=== PATIENT | male | born 1995 | race Caucasian/White ===

== ENCOUNTER 2018-04-21 13:55 | Emergency (ER) | payer OTHER ==
[2018-04-21 14:28] VITALS: BP 115/73
--- NOTE | 2018-04-21 14:56 | UC ---
Laceration HPI - HPI Summary HPI Summary: cut R 5th finger on metal pipe today - History Of Current Complaint Chief Complaint: UCLaceration Stated Complaint: FINGER LAC Time Seen by Provider: 04/21/18 14:34 Hx Obtained From: Patient Laceration Location: Finger Mechanism Of Injury: Sharp Trauma Onset/Duration: Sudden Onset Severity: Mild Pain Intensity: 2 - Allergies/Home Medications Allergies/Adverse Reactions: Allergies Allergy/AdvReac Type Severity Reaction Status Date / Time No Known Allergies Allergy Verified 04/21/18 14:28 Home Medications: Home Medications NK [No Home Medications Reported] 04/21/18 [History Confirmed 04/21/18] PMH/Surg Hx/FS Hx/Imm Hx Previously Healthy: Yes Other History Of: Negative For: Anticoagulant Therapy - Surgical History Surgical History: None - Family History Known Family History: Positive: None Negative: Hypertension, Diabetes - Social History Occupation: Employed Full-time Lives: With Family Alcohol Use: Occasionally Substance Use Type: None Smoking Status (MU): Never Smoked Tobacco - Immunization History Most Recent Tetanus Shot: less then 5 years Review of Systems Constitutional: Negative Respiratory: Negative Cardiovascular: Negative Motor: Negative All Other Systems Reviewed And Are Negative: Yes Physical Exam Triage Information Reviewed: Yes Appearance: Well-Appearing, No Pain Distress, Well-Nourished Vital Signs: Initial Vital Signs Temp 98.0 F 04/21/18 14:25 Pulse 68 04/21/18 14:25 Resp 12 04/21/18 14:25 BP 115/73 04/21/18 14:25 Pulse Ox 100 04/21/18 14:25 Vital Signs Reviewed: Yes Respiratory Exam: Normal Cardiovascular Exam: Normal Musculoskeletal Exam: Normal Musculoskeletal: Positive: Strength Intact, ROM Intact Neurological Exam: Normal Skin: Positive: Other - lac R 5th finger Laceration Repair - Laceration Repair 1 Description: Linear Laceration Size After Repair: Length (cm) - 1.3, Width (mm) - 3, Depth (mm) - 3 Modified For Repair: No Type Injection: Local Anesthesia Used: 1.0% Lido Irrigation With Pressure Irrigation Device: Yes Closure Material: Sutures Closure Method: Single Layer Suture Of: Skin Suture Type: Nylon - 3 5.0 Laceration Course/Dx - Differential Dx - Laceration/Wound Differental Diagnoses: Avulsion, Laceration Provider Diagnoses: R 5th finger lac Discharge - Sign-Out/Discharge Documenting (check all that apply): Patient Departure All imaging exams completed and their final reports reviewed: No Studies - Discharge Plan Condition: Good Disposition: HOME Patient Education Materials: Laceration (ED) Referrals: Tamanna Soto TRANSIT OPERATIONS SUPERVISOR [Primary Care Provider] - Additional Instructions: keep wound clean and dry wear splint for 5 days suture removal 10 days - Billing Disposition and Condition Condition: GOOD Disposition: Home - Attestation Statements Provider Attestation: Per institutional requirements, I have reviewed the chart, however, I was not consulted specifically or made aware of this patient by the midlevel provider. I did not personally evaluate, interact with , or disposition this patient.
[2018-04-21] MEDS ORDERED: Lidocaine 1%* 5 ML VIAL INJ ONE (14:58)
== END 2018-04-21 15:30 | disposition home or self-care (01) ==
LOC: UCEAST 13:55
DX: S61.216A Laceration without foreign body of right little finger without damage to nail, initial encounter (principal); W26.8XXA Contact with other sharp object(s), not elsewhere classified, initial encounter; Y93.9 Activity, unspecified; Y92.9 Unspecified place or not applicable
CPT/HCPCS: 12001; 99211; G0463

== ENCOUNTER 2019-03-19 07:19 | Day surgery (SDC) | payer OTHER ==
[~2019-03-19 07:19] MED LIST: Buffered Lidocaine 1% SYRIN* 1 ML/SYRINGE INTRADERM ONE; Dexamethasone IV* 4 MG/ML 1 ML (4 MG) IV SLOW PU ONE; Famotidine TAB* 20 MG PO ONE; Lactated Ringers 1000 ML Bag* 1,000 ML IV SCH
[2019-03-19] MEDS ORDERED: Dexamethasone IV* 4 MG/ML 1 ML (4 MG) ONE (07:47)
[2019-03-19] MEDS ORDERED: ceFAZolin 2 GM in NS PREMIX(*) 2 GM/100 ML BAG IVPB ONE (07:47)
[2019-03-19] MEDS ORDERED: Famotidine TAB* 20 MG ONE (07:47)
[2019-03-19] MEDS ORDERED: Buffered Lidocaine 1% SYRIN* 1 ML/SYRINGE INTRADERM ONE (07:47)
[2019-03-19] MEDS ORDERED: Propofol* 10 MG/ML 20 ML BTL ONE ×2 (08:23→10:41)
[2019-03-19] MEDS ORDERED: fentaNYL* 50 MCG/ML 2 ML VIAL (100 MCG VIAL) ONE ×3 (08:23→11:44)
[2019-03-19] MEDS ORDERED: Midazolam* 1 MG/ML 5 ML VIAL (5 MG) ONE (08:23)
[2019-03-19] MEDS ORDERED: EPINEPHRINE 1 MG/ML 1 ML VIAL ONE (09:56)
[2019-03-19] MEDS ORDERED: Bupivacaine 0.5%* 50 ML VIAL ONE (09:56)
[2019-03-19] MEDS ORDERED: Lidocaine 2% PF * 5 ML VIAL ONE (10:10)
[2019-03-19] MEDS ORDERED: fentaNYL* 50 MCG/ML 2 ML VIAL (100 MCG VIAL) IV PRN (10:40)
[2019-03-19] MEDS ORDERED: Naloxone* 0.4 MG/ML 1 ML VIAL IV PRN (10:40)
[2019-03-19] MEDS ORDERED: Ketorolac INJ* 30 MG/ML 1 ML VIAL IV PRN (10:40)
[2019-03-19] MEDS ORDERED: DiMENhydriNATE IV* 50 MG/ML VIAL IV PUSH PRN (10:40)
[2019-03-19] MEDS ORDERED: HYDROcodone/ACETAMIN 5-325 MG* 1 TAB PO PRN (10:40)
[2019-03-19] MEDS ORDERED: Acetaminophen TAB* 325 MG PO PRN (10:40)
[2019-03-19] MEDS ORDERED: Ondansetron INJ* 2 MG/ML VIAL ONE (11:16)
[2019-03-19] MEDS ORDERED: Ketorolac INJ* 30 MG/ML 1 ML VIAL ONE (11:44)
[2019-03-19 13:27] VITALS: BP 121/78
--- NOTE | 2019-03-19 15:13 | OP ---
DATE OF OPERATION: 03/19/19 - [facility] DATE OF : [birth year] SURGEON: Chandrakant Navarro MD. BUTTONHOLE MAKER HAND: JABARI Lima. A physician financial sales assistant was required for the length of the procedure for assistance with patient positioning, retraction, and closure. ANESTHESIOLOGIST: Dr. Alan Wang. ANESTHESIA: General anesthesia, local anesthesia using 30 cc of 0.5% Marcaine with epinephrine. PRE-OP DIAGNOSES: 1. Left knee loose body, symptomatic. 2. Left knee possible articular cartilage defect. POST-OP DIAGNOSES: 1. Left knee symptomatic loose body. 2. Left knee low-grade articular cartilage injury, grade 1 to 2, medial patella. 3. Left knee prominent medial plica. OPERATIVE PROCEDURES: 1. Left knee arthroscopic removal of loose bodies. 2. Left knee arthroscopic chondroplasty, medial patella. 3. Left knee arthroscopic debridement of medial plica. 4. Modifier 22 for unusual or complex procedure. I included this code just as this case took much longer than the standard removal of loose body procedure. This was because mini C-arm was utilized and a posterolateral portal was required, to remove loose bodies that had migrated to the posterior aspect of the knee. ANTIBIOTICS: Ancef 2 g IV. IV FLUIDS: See Anesthesia note. TOURNIQUET TIME: 52 minutes at 300 mmHg, left thigh tourniquet. VFTF-BO-YXGA TIME: 41 minutes. RADIATION EXPOSURE: Mini C-arm utilized. Time and radiation exposure not currently available. ARTHROSCOPIC FLUID UTILIZED: Not available. SPECIMENS: Two loose bodies, osteocartilaginous, synovialized, sent for pathology. IMPLANTS: None. INDICATIONS FOR PROCEDURE: The patient is a 23-year-old man who presented to me in clinic with left knee pain and mechanical symptoms and a loose body on radiography that was also present on MRI imaging. No clear articular cartilage defect visible on MRI or x-ray. Maximal dimension of loose body was noted to be 12.4 mm. Loose body was noted to be in the patellofemoral compartment on both the x-ray and MRI imaging. Discussed nonoperative and operative management. Given the significance of his symptoms and the possibility for joint damage caused by that loose body, we decided to move forward with surgery. Discussed risks and potential complications of surgery. I consented the patient for removal of loose body as well as for possible microfracture if I were to encounter a high-grade articular cartilage injury. DESCRIPTION OF PROCEDURE: In preoperative holding, the patient signed written consent. Operative extremity was marked in preoperative holding. The patient was taken back to the operating room and placed supine on the operating room table. Sedated and intubated. Tourniquet was placed about the left proximal thigh. Two blanket bumps placed under the left hemipelvis. Lateral post applied along the table. Left lower extremity was prepped and draped. Surgical time-out performed. Esmarch applied and tourniquet elevated to 300 mmHg. I established an anterolateral knee arthroscopy portal using standard technique. Commenced my diagnostic arthroscopy. I noted that the patellofemoral compartment seemed a little tight even with the knee in full extension. There was some clear irritation about the medial most aspect of the articular cartilage of the undersurface of the patella. While there appeared to be wear of articular cartilage in that location, I detected no articular cartilage injury to the trochlear groove or to the lateral patella. I noticed at this point a prominent medial plica. I dropped down to the anterior aspect of the knee. There was a prominent plica or ligamentum mucosum anterior to the ACL. I established an anteromedial knee arthroscopy portal under direct visualization. I debrided the ligamentum mucosum as well as some anterior synovitis using the arthroscopic shaver. Surprisingly, the loose body was not visible. In my experience, generally, these collect towards the anterior horns of the medial or lateral meniscus. ACL and PCL were noted to be intact. I next visualized the medial compartment. No meniscal tear. No articular cartilage injury whatsoever about the medial tibial plateau or medial femoral condyle. I moved to the lateral compartment. No injury to the lateral meniscus, lateral femoral condyle, or lateral tibial plateau. I next more closely evaluated the medial patella. I established a new anteromedial knee arthroscopy portal and inserted my shaver through that. I debrided much of the medial plica as that could be a pain generator. I also smoothed out the ruffled inflamed aspect of the medial undersurface of the patella. After I had performed this limited chondroplasty, I was able to more thoroughly evaluate the medial patella. It was clear that the injury to the undersurface of the patella here was only grade 1 or 2. No high-grade injury to the articular cartilage here. I next made a superolateral knee arthroscopy portal under direct visualization. I utilized this to assess the medial patella also from this view. I agreed with my earlier finding of just limited, grade 1 to 2, injury to only the medial most part of the patella undersurface. I noted certainly that the patella tracked laterally, in full extension, until enough flexion centered the patella in its groove at perhaps 20 to 30 degrees of knee flexion as is typical. However, one of the reasons that I had first noted that the patellofemoral compartment was narrowed was that lateral translation in the patellofemoral compartment. I obtained some good images of that viewing from the superolateral portal. I had still not seen the loose body. I debrided some synovitic tissue in the suprapatellar pouch. I viewed throughout the suprapatellar pouch and debrided some of the tissue in that area for that reason. I looked down the medial and lateral gutters. I checked the popliteal hiatus. I checked again the anterior aspect of the knee and did not find it encased in any of the synovitis present here or in the fat deep to the patellar tendon. I milked the posterior aspect of the knee. At this point, I wanted to make sure that the loose bodies were not inadvertently sucked up. Therefore, I brought the mini C-arm in. I compared preoperative x-rays and was able to find after multiple images that there was indeed still a loose body in the knee and it was present about the posterior aspect of the knee, specifically posterolateral compartment. With the knee in 90 degrees of flexion, under direct visualization, I established a posterolateral knee arthroscopy portal. I did so only after carefully palpating for posterolateral corner anatomy. I made my incision and my trajectory well anterior to the biceps tendon so as to also be anterior from the peroneal nerve, common. I cut the skin, spread through tissue with a snap hemostat, and then brought graspers in through that portal and was able to remove 2 loose bodies that were present in the posterolateral compartment. One of these loose bodies measured significantly more than 1 cm in dimension and was the loose body appreciated on x- ray and MRI imaging. The other loose body was smaller, perhaps 5 mm in diameter. After removing the loose body, I returned to the anterior aspect of the knee and then I removed instruments and fluid from the knee. We closed skin incisions with [id number] stitches using nylon 3-0 suture. Local anesthetic 30 cc of Marcaine 0.5% with epinephrine was injected into the subcutaneous tissues surrounding all skin incisions. Xeroform, 4x4s, ABD, sterile Webril. Brandin bandage from foot to left proximal groin. Tourniquet was dropped. A cooling unit was applied to the left knee. The patient was awakened, extubated, and brought to the PACU. DISPOSITION: The patient was discharged home when he met criteria. He will start physical therapy immediately. Wound care instructions provided. Tramadol as needed for pain control. The patient will follow up with me 10 to 14 days postoperatively. He is weightbearing as tolerated with crutches. [id number]/[facility] #: [id number] AALIYAH
== END 2019-03-19 13:29 | disposition home or self-care (01) ==
LOC: OR 07:19
PROVIDERS: ATTEND Orthopaedic Surgery
DX: M23.42 Loose body in knee, left knee (principal); M67.52 Plica syndrome, left knee; M25.862 Other specified joint disorders, left knee; M25.562 Pain in left knee
CPT/HCPCS: 76000; A9270-GY; J0690; J1100; J1885; J2250; J2405; J2704; J3010; J3490